=== PATIENT | female | born 1965 | race American Indian/Alaskan Native ===

== ENCOUNTER 2018-01-31 19:04 | Emergency (ER) | payer SELFPAY ==
[2018-01-31 21:49] LABS: Bacteria,Urine 1+ /HPF (Negative); Bilirubin,Urine NEG (Negative); Blood,Urine MOD (Negative); Color,Urine Yellow (Yellow); Mucus,Urine FEW /HPF; Protein,Urine <15 mg/dL mg/dL (Negative); Urobilinogen,Urine < 2.0 mg/dL (<2.0)
[2018-01-31 22:52] LABS: Hematocrit 43.5 % (30.3-42.9); Hemoglobin 14.8 gm/dl (10.1-14.3); Mean Corpuscular HGB Conc 34 % (30-34); Mean Corpuscular Hemoglobin 30 pg (28-32); Mean Corpuscular Volume 89 fl (79-97); Platelet Count 265 K/mm3 (140-440)
[2018-01-31] MEDS ORDERED: ROCEPHIN/NS 1 GM/50 ML 1 GM/50 ML BAG IV ONE (23:10)
[2018-01-31] MEDS ORDERED: NACL 0.9% 1000 ML 1,000 ML IV ONE (23:10)
--- NOTE | 2018-01-31 23:17 | Emergency Department Report ---
ED Female HPI - General Chief complaint: Urogenital-Female Stated complaint: PAINFUL URINATION Time Seen by Provider: 01/31/18 22:43 Source: patient Mode of arrival: Ambulatory Limitations: No Limitations - History of Present Illness Initial comments: There is a 52-year-old female with diabetes type 2 On metformin and glipizide states intermittent adherence to treatment regimen who presents for dysuria frequency urgency 1 week denies fevers chills no nausea vomiting no belly pain mild flank pain no hematuria check blood sugars but thinks it's high power no dizziness no polys no nausea vomiting no vaginal discharge no vaginal bleeding MD Complaint: dysuria Onset/Timin -: week(s) Severity: moderate Severity scale (0 -10): 4 Are you Now?: No Associated Symptoms: dysuria - Related Data Sexually active: Yes Previous Rx's Medication Instructions Recorded Last Taken Type Cephalexin [Keflex] 500 mg PO BID #20 capsule 02/01/18 Unknown Rx Losartan [Cozaar] 100 mg PO QDAY 1 Days #30 tablet 02/01/18 Unknown Rx Metformin HCl 1,000 mg PO BID 1 Days #60 tablet 02/01/18 Unknown Rx glipiZIDE [Glipizide] 5 mg PO DAILY #30 tablet 02/01/18 Unknown Rx Allergies Allergy/AdvReac Type Severity Reaction Status Date / Time No Known Allergies Allergy Verified 01/31/18 23:14 ED Review of Systems ROS: Stated complaint: PAINFUL URINATION Other details as noted in HPI Constitutional: denies: chills, fever Eyes: denies: eye pain, eye discharge, vision change ENT: denies: ear pain, throat pain Respiratory: denies: cough, shortness of breath, wheezing Cardiovascular: denies: chest pain, palpitations Endocrine: no symptoms reported Gastrointestinal: denies: abdominal pain, nausea, vomiting, diarrhea, constipation, hematemesis, melena, hematochezia Genitourinary: urgency, dysuria, frequency. denies: discharge, dyspareunia Musculoskeletal: denies: back pain, joint swelling, arthralgia, myalgia Skin: denies: rash, lesions Neurological: denies: headache, weakness, paresthesias Psychiatric: denies: anxiety, depression Hematological/Lymphatic: denies: easy bleeding, easy bruising ED Past Medical Hx - Past Medical History Previous Medical History?: Yes Hx Hypertension: Yes Hx Diabetes: Yes - Surgical History Past Surgical History?: No - Social History Smoking Status: Never Smoker Substance Use Type: None - Medications Home Medications: Home Medications Medication Instructions Recorded Confirmed Last Taken Type Cephalexin [Keflex] 500 mg PO BID #20 capsule 02/01/18 Unknown Rx Losartan [Cozaar] 100 mg PO QDAY 1 Days #30 tablet 02/01/18 Unknown Rx Metformin HCl 1,000 mg PO BID 1 Days #60 tablet 02/01/18 Unknown Rx glipiZIDE [Glipizide] 5 mg PO DAILY #30 tablet 02/01/18 Unknown Rx ED Physical Exam - General Limitations: No Limitations General appearance: alert, in no apparent distress - Head Head exam: Present: atraumatic, normocephalic - Eye Eye exam: Present: normal appearance - ENT ENT exam: Present: mucous membranes moist - Neck Neck exam: Present: normal inspection - Respiratory Respiratory exam: Present: normal lung sounds bilaterally. Absent: respiratory distress - Cardiovascular Cardiovascular Exam: Present: regular rate, normal rhythm. Absent: systolic murmur, diastolic murmur, rubs, gallop - GI/Abdominal GI/Abdominal exam: Present: soft, normal bowel sounds - Rectal Rectal exam: Present: deferred - Extremities Exam Extremities exam: Present: normal inspection - Back Exam Back exam: Present: normal inspection. Absent: CVA tenderness (R), CVA tenderness (L) - Neurological Exam Neurological exam: Present: alert, oriented X3, CN II-XII intact, normal gait, reflexes normal. Absent: motor sensory deficit - Psychiatric Psychiatric exam: Present: normal affect, normal mood - Skin Skin exam: Present: warm, dry, intact, normal color. Absent: rash ED Course Vital Signs 01/31/18 20:00 Temperature 98.6 F Pulse Rate 87 Blood Pressure 155/78 O2 Sat by Pulse 100 Oximetry ED Medical Decision Making - Lab Data Result diagrams: 01/31/18 22:30 01/31/18 22:30 Laboratory Tests 01/31/18 01/31/18 01/31/18 21:00 22:30 22:30 WBC 9.3 RBC 4.90 Hgb 14.8 H Hct 43.5 H MCV 89 MCH 30 MCHC 34 RDW 13.0 L Plt Count 265 Sodium 132 L Chloride 94.7 L Carbon Dioxide 26 Anion Gap 18 BUN 7 Creatinine 0.5 L Estimated GFR > 60 BUN/Creatinine Ratio 14 Glucose 396 H Ketones Quantitative Negative Calcium 8.9 Total Bilirubin 0.30 Total Protein 7.7 Albumin 4.3 Albumin/Globulin Ratio 1.3 Urine Color Yellow Urine Turbidity Clear Urine pH 5.0 Ur Specific [place] 1.032 H Urine Protein <15 mg/dl Urine Glucose (UA) >=500 Urine Ketones Neg Urine Blood Mod Urine Nitrite Neg Urine Bilirubin Neg Urine Urobilinogen < 2.0 Ur Leukocyte Esterase Mod Urine WBC (Auto) 115.0 H Urine RBC (Auto) 8.0 U Epithel Cells (Auto) < 1.0 Urine Bacteria (Auto) 1+ Urine Mucus Few - Medical Decision Making This is a diabetic with a UTI glucose at 357mg dl tx with rocephin 1gm ivpb, NS 1000cc iv, repeat accu check: no ketonuria patient is not in DKA patient treated with Rocephin and ED will refilled metformin glipizide losartan patient will follow-up with [facility] . Prescriptions: Metformin 1000 mg po bid , Glipizide 5mg po daily, losartan 100 mg po daily, follow up with [facility] in 2-3 Days. pt will discharged to home in stable condition up completion of abx, ivfs, and repeat accucheck: Critical care attestation.: If time is entered above; I have spent that time in minutes in the direct care of this critically ill patient, excluding procedure time. ED Disposition Clinical Impression: Hyperglycemia, Medication refill UTI (urinary tract infection) Qualifiers: Urinary tract infection type: acute cystitis Hematuria presence: without hematuria Qualified Code(s): N30.00 - Acute cystitis without hematuria Disposition: TO HOME OR SELFCARE Is pt being admited?: No Does the pt Need Aspirin: No Condition: Good Instructions: Diabetes Mellitus Type 2 in Adults (ED) Prescriptions: Cephalexin [Keflex] 500 mg PO BID #20 capsule glipiZIDE [Glipizide] 5 mg PO DAILY #30 tablet Losartan [Cozaar] 100 mg PO QDAY 1 Days #30 tablet Metformin HCl 1,000 mg PO BID 1 Days #60 tablet Referrals: [facility] [Outside] - 3-5 Days Forms: Work/School Release Form(ED) Time of Disposition: 00:09
[2018-01-31 23:26] LABS: Alanine Aminotransferase TNR units/L (7-56); BUN/Creatinine Ratio TNR; Blood Urea Nitrogen TNR mg/dL (7-17); Calcium TNR mg/dL (8.4-10.2)
[2018-01-31 23:27] LABS: Albumin TNR g/dL (3.9-5); Hemolysis Index TNR
[2018-01-31] MEDS ORDERED: cefTRIAXone 1 GM in NACL 0.9% 20 ML IV ONE (23:30)
[2018-02-01 02:46] VITALS: BP 153/79
== END 2018-02-01 00:36 | disposition home or self-care (01) ==
LOC: ED 19:04
DX: N30.00 Acute cystitis without hematuria (principal); E11.65 Type 2 diabetes mellitus with hyperglycemia; I10 Essential (primary) hypertension
CPT/HCPCS: 36415; 80053; 81001; 82805; 82962; 85027; 96374; 99283; J0696; J7030; 96361